=== PATIENT | female | born 1940 | race Caucasian/White ===

== ENCOUNTER → 2018-09-04 13:16 | Outpatient (CLI) | payer MEDICARE, OTHER ==
[~2018-09-04] VITALS: Ht 152.4 cm; Wt 51.4 kg
[2018-09-04 13:37] VITALS: Ht 152.4 cm; Wt 51.4 kg
== END | disposition home or self-care (01) ==
LOC: D.OPS 08-29 13:30
PROVIDERS: ATTEND Family Medicine
DX: M81.0 Age-related osteoporosis without current pathological fracture (principal)

== ENCOUNTER → 2019-09-03 11:10 | Outpatient (CLI) | payer MEDICARE, OTHER ==
[2019-03-18 14:46] VITALS: BMI 23.4
== END | disposition home or self-care (01) ==
LOC: D.US 11:10
PROVIDERS: ATTEND Family Medicine
DX: M79.661 Pain in right lower leg (principal)

== ENCOUNTER 2019-09-17 11:31 | Outpatient (CLI) | payer MEDICARE, OTHER ==
[2019-03-18 14:46] VITALS: BMI 23.4
--- NOTE | 2019-09-17 12:00 | NUR ---
1145-PATIENT ARRIVES FOR PROLIA. STATES ALL THAT HAS CHANGED IS OUTPATIENT BACK SURGERY LAST WEEK. DOES NOT WANT TO SIT DOWN, ANSWER QUESTIONS DUE TO BACK SURGERY/PAIN GETTING UP AND DOWN 1149-PROLIA INJECTION GIVEN TO LEFT ARM. 1200-DISCHARGED HOME AMBULATORY.
== END 2019-09-17 12:00 | disposition home or self-care (01) ==
LOC: D.OPS 11:31
PROVIDERS: ATTEND Family Medicine
DX: M81.0 Age-related osteoporosis without current pathological fracture (principal)